=== PATIENT | female | born 1960 | race Caucasian/White ===

== ENCOUNTER 2020-09-28 14:24 | Observation (INO) | payer OTHER, SELFPAY ==
[2020-09-28] VITALS (10 sets, daily range): BP systolic 115–193; BP diastolic 74–127; PULSE 74–91; RESP 18–28; TEMP 36.1–37.1; O2SAT 94–98; BMI 29.9
--- NOTE | 2020-09-28 15:05 | DI.RAD.S_ITS ---
PROCEDURE: XR CHEST 1V INDICATIONS: chest pain TECHNIQUE: One view of the chest was acquired. COMPARISON: None. FINDINGS: Surgical changes and devices: None. Lungs and pleura: Lungs are clear. No pleural effusions or pneumothorax. Mediastinum: Mediastinal contours appear normal. Heart size is normal. Bones and chest wall: No suspicious bony lesions. Overlying soft tissues appear unremarkable. IMPRESSION: 1. No acute cardiopulmonary disease. Dictated by: Tim Alexander M.D. on 09/28/2020 at 15:31 Approved by: Tim Alexander M.D. on 09/28/2020 at 15:34
--- NOTE | 2020-09-28 15:30 | ED_ITS ---
HPI - Chest Pain General Chief Complaint: Chest Pain Stated Complaint: SMASHED CHEST INTO WALL LAST MONDAY, SOB Time Seen by Provider: 09/28/20 15:22 Source: patient Mode of arrival: Ambulatory Limitations: no limitations History of Present Illness HPI narrative: Patient is a 60-year-old female here for evaluation of chest discomfort. She states that 1 week ago she fell at home off of a step ladder. She states she hit her head and her chest in her right elbow on the wall the way down. She did not lose consciousness. She has not had any nausea or vomiting. She does have bruising around her right elbow but has full range of motion right elbow. Approximately 3 days later she started having chest discomfort. She states that is currently hurting now. Has been off and on since then. Has not worsened palpation or movement or breathing. She describes it is in the center of her chest. She has not had any coughing. Related Data Home Medications Medication Instructions Recorded Confirmed aspirin 81 mg PO DAILY 09/28/20 09/28/20 lisinopril 10 mg PO DAILY 09/28/20 09/28/20 sertraline 50 mg PO DAILY 09/28/20 09/28/20 Allergies Allergy/AdvReac Type Severity Reaction Status Date / Time No Known Drug Allergies Allergy Verified 09/28/20 15:00 Review of Systems Constitutional Constitutional: Denies chills, Denies fever(s) and Denies malaise Eyes Eyes: Denies blurry vision and Denies diplopia Cardiovascular Cardiovascular: Reports chest pain and Denies dyspnea Respiratory Respiratory: Denies cough and Denies dyspnea Gastrointestinal Gastrointestinal: Denies abdominal pain, Denies nausea and Denies vomiting Genitourinary Genitourinary: Denies dysuria Genitourinary: Denies dysuria Musculoskeletal Musculoskeletal: Denies arthralgias and Denies myalgias Integumentary/Breasts Skin/Breast: Denies rash Neurologic Neurologic: Denies behavioral changes Psychiatric Psychiatric: Denies behavioral changes Hematologic/Lymphatic On Anticoagulants: No Allergic/Immunologic Allergic/Immunologic: Denies urticaria Patient History Medical History Hypertension Social History household members: significant other Smoking Status: Never smoker alcohol intake: current Smoking Status: Former smoker alcohol intake frequency: a few times a week Substance Use Type: does not use Exam Initial Vital Signs Initial Vital Signs: Vital Signs Temperature 98.7 F 09/28/20 14:58 Pulse Rate 91 H 09/28/20 14:58 Respiratory Rate 22 09/28/20 14:58 Blood Pressure 193/127 H 09/28/20 14:58 Pulse Oximetry 97 09/28/20 14:58 Const General: cooperative and comfortable Limitations: mental status not altered HENMT Head: normal to inspection and normocephalic Chest Chest: No crepitus and No tenderness Resp Effort & Inspection: normal respiratory effort Auscultation: clear to auscultation bilaterally Cardio Rate: regular rate Rhythm: regular rhythm GI Inspection: non-distended Palpation: soft, No firm and No tender Skin Other: Bruising around the right elbow Neuro General: patient alert, patient awake and patient oriented x3 Cognition: normal cognition Speech: speech normal Extrem General: capillary refill normal Psych Appearance: grossly normal and well kempt Course Orders Ordered: ED Orders 09/28/20 15:05 XR chest 1V Stat EKG-12 Lead Stat 09/28/20 15:33 Complete Blood Count AUTO DIFF Stat Comprehensive Metabolic Panel Stat Lipase Stat Partial Thromboplastin Time Stat Prothrombin Time INR Stat Troponin & CK Cardiac Panel Stat 09/28/20 17:30 Troponin & CK Cardiac Panel Stat Discontinued Medications Aspirin (Aspirin 81 Mg Chew Tab) 324 mg PO NOW ONE Stop: 09/28/20 16:57 Last Admin: 09/28/20 17:02 Dose: 324 mg Documented by: PATIENCE Lisinopril (Lisinopril 10 Mg Tablet) 10 mg PO NOW ONE Stop: 09/28/20 18:25 Last Admin: 09/28/20 18:46 Dose: 10 mg Documented by: PATIENCE Vital Signs Vital signs: Vital Signs - 8 hr 09/28/20 14:58 09/28/20 16:50 09/28/20 17:00 Temperature 98.7 F Pulse Rate 91 H 76 75 Respiratory Rate 22 28 H 26 H Blood Pressure 193/127 H 141/74 H Pulse Oximetry 97 96 95 09/28/20 17:30 09/28/20 18:00 Temperature Pulse Rate 74 75 Respiratory Rate 24 26 H Blood Pressure 144/81 H 154/88 H Pulse Oximetry 94 95 MDM - Chest Pain Lab Data Attestation: I reviewed the patient's lab results. Result diagrams: 09/28/20 15:33 09/28/20 15:33 Labs: Lab Results 09/28/20 09/28/20 09/28/20 Range/Units 15:33 15:33 15:33 WBC 5.5 (4.5-11.0) X10^3/uL RBC 4.64 (4.0-5.2) X10^6/uL Hgb 14.3 (12.0-16.0) g/dL Hct 41.9 (36-46) % MCV 90.4 (80-100) fL MCH 30.7 (26-34) PG MCHC 34.0 (30-36) % RDW 14.4 (11.6-14.8) % Plt Count 185 (150-400) X10^3/uL Neut % (Auto) 50.3 (50-75) % Lymph % (Auto) 41.8 H (25-40) % [place] % (Auto) 5.4 (3-14) % Eos % (Auto) 1.7 L (2-4) % Baso % (Auto) 0.8 (0-2) % Neut # (Auto) 2800 (2955-3533) /uL Lymph # (Auto) 2300 (8244-3334) /uL [place] # (Auto) 300 (0-900) /uL Eos # (Auto) 100 (0-450) /uL Baso # (Auto) 0 (0-100) /uL PT 11.6 (10.1-12.7) SECONDS INR 1.0 (0.9-1.3) APTT 30 (26.4-36.2) SECONDS Sodium 135 L (137-145) mmol/L Potassium 4.3 (3.4-5.1) mmol/L Chloride 102 (98-107) mmol/L Carbon Dioxide 27 (22-32) mmol/L BUN 14 (7-17) mg/dL Creatinine 0.80 (0.52-1.04) mg/dL Estimated GFR > 60.0 (>60) mL/min BUN/Creatinine Ratio 17.5 (6-22) Glucose 102 (80-110) mg/dL Calcium 9.4 (8.4-10.2) mg/dL Total Bilirubin 0.5 (0.2-1.3) mg/dL AST 35 (14-36) IU/L ALT 32 (<35) IU/L Alkaline Phosphatase 67 (38-126) U/L Total Creatine Kinase 67 (30-135) U/L CK-MB (CK-2) TNP CK-MB (CK-2) Rel Index TNP Troponin I 0.047 H (0.01-0.034) ng/mL Total Protein 7.3 (6.3-8.2) g/dL Albumin 4.3 (3.5-5.0) g/dL Globulin 3.0 (1.7-4.1) g/dL Albumin/Globulin Ratio 1.4 (1.0-2.8) Lipase 145 (23-300) U/L 09/28/20 Range/Units 17:30 WBC (4.5-11.0) X10^3/uL RBC (4.0-5.2) X10^6/uL Hgb (12.0-16.0) g/dL Hct (36-46) % MCV (80-100) fL MCH (26-34) PG MCHC (30-36) % RDW (11.6-14.8) % Plt Count (150-400) X10^3/uL Neut % (Auto) (50-75) % Lymph % (Auto) (25-40) % [place] % (Auto) (3-14) % Eos % (Auto) (2-4) % Baso % (Auto) (0-2) % Neut # (Auto) (0648-5491) /uL Lymph # (Auto) (2018-9390) /uL [place] # (Auto) (0-900) /uL Eos # (Auto) (0-450) /uL Baso # (Auto) (0-100) /uL PT (10.1-12.7) SECONDS INR (0.9-1.3) APTT (26.4-36.2) SECONDS Sodium (137-145) mmol/L Potassium (3.4-5.1) mmol/L Chloride (98-107) mmol/L Carbon Dioxide (22-32) mmol/L BUN (7-17) mg/dL Creatinine (0.52-1.04) mg/dL Estimated GFR (>60) mL/min BUN/Creatinine Ratio (6-22) Glucose (80-110) mg/dL Calcium (8.4-10.2) mg/dL Total Bilirubin (0.2-1.3) mg/dL AST (14-36) IU/L ALT (<35) IU/L Alkaline Phosphatase (38-126) U/L Total Creatine Kinase 65 (30-135) U/L CK-MB (CK-2) TNP CK-MB (CK-2) Rel Index TNP Troponin I 0.046 H (0.01-0.034) ng/mL Total Protein (6.3-8.2) g/dL Albumin (3.5-5.0) g/dL Globulin (1.7-4.1) g/dL Albumin/Globulin Ratio (1.0-2.8) Lipase (23-300) U/L Imaging Data Chest x-ray: Radiologist's Impression: [address] [id number] ReportSigned Patient: DORCAS WATSON PMR#: [id number]: 8Acct:[id number]/Sex: 60 / FDate of Service: 09/28/20Loc: EDAccession Number: [id number] Procedure: XR chest 1V Ordering Provider: Alex Shah D.O. PROCEDURE: XR CHEST 1V INDICATIONS: chest pain TECHNIQUE: One view of the chest was acquired. COMPARISON: None. FINDINGS: Surgical changes and devices: None. Lungs and pleura: Lungs are clear. No pleural effusions or pneumothorax. Mediastinum: Mediastinal contours appear normal. Heart size is normal. Bones and chest wall: No suspicious bony lesions. Overlying soft tissues appear unremarkable. IMPRESSION: 1. No acute cardiopulmonary disease. Dictated by: Tim Alexander M.D. on 09/28/2020 at 15:31 Approved by: Tim Alexander M.D. on 09/28/2020 at 15:34 ECG Data Attestation: I personally reviewed and interpreted this ECG as follows: Prior ECG tracings: not available for review Interpretation: Sinus rhythm Ventricular rate is 70 for Sinus arrhythmia Normal QRS Normal QTC No ST T wave changes MDM Narrative Medical decision making narrative: Patient did fall approximately 1 week ago however the chest pain that brought her in today started several days afterwards. Has been off and on since then. Is in the center of her chest. It is not worse with palpation or movement or breathing. Her EKG is unremarkable. Her troponin is above the 99th percentile however less than the AMI cut off. A repeat troponin in 2 hours showed no change in this. She was hypertensive upon arrival. She had not taken her lisinopril today so I did give her a dose of her lisinopril. Blood pressure improved. Given the fact that her symptoms are not reproducible with palpation and that the symptoms started a couple days after the fall I feel that it is less likely related to the fall and there is concern about coronary artery disease. I discussed the case with Dr. Martin who is on- call for the patient's primary provider. Will admit for further evaluation and treatment. Discussed the admission with the patient. She expressed understanding and agreement. Discharge Plan Departure Patient Disposition: Admitted as Observation Clinical Impression: Chest pain Admit Date/Time: 09/28/20 18:25 Admit Provider: Surya Martin
[2020-09-28 15:43] LABS: Add Manual Diff / Slide Review NO; Basophils Absolute Auto 0 /uL (0-100); Basophils Percent Auto 0.8 % (0-2); Eosinophils Absolute Auto 100 /uL (0-450); Eosinophils Percent Auto 1.7 % (2-4); Hematocrit 41.9 % (36-46); Hemoglobin 14.3 g/dL (12.0-16.0); Lymphocytes Absolute Auto 2300 /uL (1100-4500); Lymphocytes Percent Auto 41.8 % (25-40); Mean Corpuscular Hemoglobin 30.7 PG (26-34); Mean Corpuscular Volume 90.4 fL (80-100); Monocytes Absolute Auto 300 /uL (0-900); Monocytes Percent Auto 5.4 % (3-14); Neutrophils Absolute Auto 2800 /uL (1500-7000); Neutrophils Percent Auto 50.3 % (50-75); Platelet Count 185 X10^3/uL (150-400); Red Blood Cell Count 4.64 X10^6/uL (4.0-5.2); Red Cell Distribution Width 14.4 % (11.6-14.8); White Blood Cell Count 5.5 X10^3/uL (4.5-11.0)
[2020-09-28 15:50] LABS: Prothrombin Time 11.6 SECONDS (10.1-12.7)
[2020-09-28 15:52] LABS: PTT Partial Thromboplastin Tim 30 SECONDS (26.4-36.2)
[2020-09-28 15:55] LABS: Alanine Aminotransferase 32 IU/L (<35); Albumin 4.3 g/dL (3.5-5.0); Albumin Globulin Ratio 1.4 (1.0-2.8); Alkaline Phosphatase 67 U/L (38-126); Aspartate Aminotransferase 35 IU/L (14-36); BUN Creatinine Ratio 17.5 (6-22); Bilirubin Total 0.5 mg/dL (0.2-1.3); Blood Urea Nitrogen 14 mg/dL (7-17); Calcium 9.4 mg/dL (8.4-10.2); Carbon Dioxide 27 mmol/L (22-32); Chloride 102 mmol/L (98-107); Creatine Kinase 67 U/L (30-135); Estimated Glomerular Filt Rate > 60.0 mL/min (>60); Glucose 102 mg/dL (80-110); HEMOLYSIS < 15 (0-50); Lipase 145 U/L (23-300); Potassium 4.3 mmol/L (3.4-5.1); Sodium 135 mmol/L (137-145); Total Protein 7.3 g/dL (6.3-8.2)
[2020-09-28 16:06] LABS: Troponin I 0.047 ng/mL (0.01-0.034)
[2020-09-28] MEDS: ASPIRIN 81 MG CHEW TAB 324 MG PO (17:02)
[2020-09-28 17:53] LABS: Creatine Kinase 65 U/L (30-135)
[2020-09-28 18:03] LABS: Troponin I 0.046 ng/mL (0.01-0.034)
[2020-09-28] MEDS: lisinopriL 10 MG TABLET PO (18:46)
[2020-09-28 19:37] LABS: COVID19 -Nasal RAPID Negative (Negative)
--- NOTE | 2020-09-28 20:44 | DI.NM.S_ITS ---
PROCEDURE: NM EXERCISE TREADMILL NON NUC COMPARISON: None. INDICATIONS: chest pain and htn FINDINGS: The patient exercised for 4 minutes and 21 seconds reaching 7.0 METs, NANDO +33%. Target heart rate achieved. Appropriate BP response to exercise. No ECG evidence of ischemia. IMPRESSION: Low risk, normal treadmill stress test. Reduced exercise tolerance (7.0METs, NANDO +33%). Dictated by: Nicolle Perez MD on 09/29/2020 at 18:22 Approved by: Nicolle Perez MD on 09/29/2020 at 18:23
--- NOTE | 2020-09-28 22:28 | PC.NURSE ---
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 Patient stated that she had attempted to dislodge the prongs from the outlet by pulling on the wires but had shocked herself and decided to leave it be. She also warned several staff to maintain their distance from the outlet and stated that she would stay away from the area. This RN was at lunch and patient did not call this RN or other staff when the incidence occurred but updated staff on hourly rounds. This RN was able to dislodge director systems prongs from outlet without incident. Charge nurse Adeline alan. Will continue to monitor.
[2020-09-29 00:37] LABS: Troponin I 0.035 ng/mL (0.01-0.034)
--- NOTE | 2020-09-29 00:48 | PC.NURSE ---
Addendum entered by Aimee Grace R.N. 09/29/20 05:15: Despite Ambien patient was unable to sleep tonight but states she feels more relaxed. Continues to have 4/10 achy pain in mid chest which she states increases when lying on side. Addendum entered by Aimee Grace R.N. 09/29/20 02:31: Patient states I can't shut my mind down complaining of not being able to sleep. Dr Martin informed and order received for Alyssa. Original Note: 2326: patient is alert and oriented. Breath sounds CTA with RA sat of 97%. HRR w/telemetry reading of SR. Having mid chest pressure of 4/10 but states it is unchanged and tolerable; declines medication. Denies nausea. BT hypoactive and abdomen is soft; reports having had BM earlier. Denies dysuria, frequency or urgency with urination. Is independent with mobility and is steady on feet. Fall risk score is moderate; patient reminded to call for assistance if having any dizziness, lightheadedness or weakness when getting out of bed and she verbalizes understanding. Wearing bilateral calf SCD's.
[2020-09-29] MEDS: ZOLPIDEM 5 MG TABLET PO (02:48)
[2020-09-29 03:00] VITALS: BP 135/78; PULSE 65; RESP 16; TEMP 36.3; O2SAT 98
--- NOTE | 2020-09-29 06:42 | PM.HP.1 ---
History of Present Illness History of Present Illness Date Patient Seen: 09/29/20 Time Patient Seen: 06:42 Chief complaint: SMASHED CHEST INTO WALL LAST MONDAY, SOB Narrative: Patient is a 60-year-old female admitted for rule out PR. She fell off a step ladder 1 week prior to presentation, hit her head, chest, and right elbow on the way down. No loss of consciousness. Four days prior to presentation, began having chest discomfort, dyspnea, and fatigue that is intermittent and ongoing. No worsening with palpation or breathing. Pain is in the center of her chest. Denies coughing, fever, sick contacts, or shortness of breath. Vital signs upon admission to the ED included a temperature of 98.7?, pulse 91, respirations 22, blood pressure 193/127, O2 saturation 97% on room air. Workup significant for a mildly elevated troponin at 0.047 that upon recheck 2 hours later was 0.046. Otherwise, had a mildly low sodium at 1:35 a.m.. She was given her usual lisinopril in the ED which reduced her blood pressure to 141/74, it normal this morning. She had not taken her blood pressure medication prior to presentation to the ED. CXR and EKG were notably negative. Reports uneventful night. 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 Household Members: Dhruv Villegas Proximetry Education: Life changes 2017: Fired from work Patient History Medical History Hypertension Family & Social History Social History: household members significant other Prior Living Arrangements House Safety & Behavioral: Feels Safe in Current Yes Environment Been Physically Hurt or No Threatened By a Person Suicidal Ideation Description None Suicide Plan Description No Plan Tobacco & Substance use: Smoking Status Never smoker alcohol intake current alcohol intake frequency a few times a week Substance Use Type does not use Meds Home Medications and Allergies Home Medications Medication Instructions Recorded Confirmed Type aspirin 81 mg PO DAILY 09/28/20 09/28/20 History lisinopril 10 mg PO DAILY 09/28/20 09/28/20 History sertraline 50 mg PO DAILY 09/28/20 09/28/20 History Allergies Allergy/AdvReac Type Severity Reaction Status Date / Time No Known Drug Allergies Allergy Verified 09/28/20 15:00 Review of Systems Review of Systems ROS: Yes All systems reviewed with the patient and are negative except as otherwise documented Exam Vital Signs (past 8 hours): - 09/28/20 23:30 09/29/20 03:00 Temperature 97.7 F 97.4 F L Pulse Rate 85 65 Respiratory Rate 18 16 Blood Pressure 127/80 135/78 Pulse Oximetry 97 98 Oxygen Delivery Method Room Air Oxygen Flow Rate 0 Narrative Exam Narrative: GENERAL: Alert and oriented, appearing stated age and in no acute distress. HEENT: Head normocephalic/atraumatic. Pupils equal, round, and reactive to light and accomodation. Extraocular muscles intact. Tympanic membranes clear. Nasal mucosa moist, septum midline. Oral mucosa moist, no lesions. Neck soft and supple, no lymphadenopathy. LUNGS: Clear to ausculation bilaterally, no wheezes, rhonchi or rales. CV: Normal S1 and S2 with regular rate and rhythm, no audible murmurs, rubs or gallops. Pain with palpation over xiphoid process and sternum. ABDOMEN: Soft, non-tender, non-distended, no organomegaly. Positive bowel sounds. EXTREMITIES: No clubbing, cyanosis, or edema. NEURO: Cranial nerves II through XII grossly intact, no focal deficits. PSYCH: Alert and oriented x 3. SKIN: Bruising over right elbow, large. Objective Labs Result Diagrams: 09/28/20 15:33 09/28/20 15:33 Labs: Laboratory Results - last 24 hr 09/28/20 09/28/20 09/28/20 15:33 15:33 15:33 WBC 5.5 RBC 4.64 Hgb 14.3 Hct 41.9 MCV 90.4 MCH 30.7 MCHC 34.0 RDW 14.4 Plt Count 185 Neut % (Auto) 50.3 Lymph % (Auto) 41.8 H [place] % (Auto) 5.4 Eos % (Auto) 1.7 L Baso % (Auto) 0.8 Neut # (Auto) 2800 Lymph # (Auto) 2300 [place] # (Auto) 300 Eos # (Auto) 100 Baso # (Auto) 0 PT 11.6 INR 1.0 APTT 30 Sodium 135 L Potassium 4.3 Chloride 102 Carbon Dioxide 27 BUN 14 Creatinine 0.80 Estimated GFR > 60.0 BUN/Creatinine Ratio 17.5 Glucose 102 Calcium 9.4 Total Bilirubin 0.5 AST 35 ALT 32 Alkaline Phosphatase 67 Total Creatine Kinase 67 CK-MB (CK-2) TNP CK-MB (CK-2) Rel Index TNP Troponin I 0.047 H Total Protein 7.3 Albumin 4.3 Globulin 3.0 Albumin/Globulin Ratio 1.4 Lipase 145 SARS-CoV-2 (PCR) 09/28/20 09/28/20 09/28/20 17:30 19:19 23:55 WBC RBC Hgb Hct MCV MCH MCHC RDW Plt Count Neut % (Auto) Lymph % (Auto) [place] % (Auto) Eos % (Auto) Baso % (Auto) Neut # (Auto) Lymph # (Auto) [place] # (Auto) Eos # (Auto) Baso # (Auto) PT INR APTT Sodium Potassium Chloride Carbon Dioxide BUN Creatinine Estimated GFR BUN/Creatinine Ratio Glucose Calcium Total Bilirubin AST ALT Alkaline Phosphatase Total Creatine Kinase 65 CK-MB (CK-2) TNP CK-MB (CK-2) Rel Index TNP Troponin I 0.046 H 0.035 H Total Protein Albumin Globulin Albumin/Globulin Ratio Lipase SARS-CoV-2 (PCR) Negative Assessment & Plan Assessment & Plan narrative: 60-year-old female with chest discomfort x4 days. 1. Rule out PR Plan: Serial cardiac enzymes have now trended back to normal. Awaiting treadmill, not available until tomorrow, will keep patient overnight as her history of chest pain, dyspnea, and fatigue is separate from her fall and still a concern in terms of an acute coronary syndrome. Morhphine and nitro for symptom control while awaiting treadmill. 2. Hypertension, chronic, elevated in ED, now controlled and back to baseline. Plan: Continue home lisinopril. 3. Hyperlipidemia, chronic Plan: FLP out of date, 2019. At that time ASCVD risk score 4.2%, appropriately on aspirin but not statin. In light of this admission, will recommend starting atorvastatin 40 mg PO qhs. FLP today. 4. Depression, chronic Plan: Continue home sertraline. 5. ADHD, chronic Plan: Manages with lifestyle measures, continue. DVT prophylaxis: SCDs COVID: Negative Code: Full Disposition: Anticipate discharge tomorrow.
[2020-09-29 06:56] LABS: Troponin I 0.025 ng/mL (0.01-0.034)
[2020-09-29 07:20] VITALS: BP 125/80; PULSE 70; RESP 18; TEMP 36.4; O2SAT 96
[2020-09-29 07:32] LABS: Cholesterol 222 mg/dL (140-199); HDL Cholesterol 59 mg/dL (40-60); LDL Cholesterol Calculated 92 mg/dL (<100); Triglycerides 356 mg/dL (35-150)
[2020-09-29 08:18] VITALS: BP 125/80; PULSE 70
[2020-09-29] MEDS: ASPIRIN EC 81 MG TABLET PO (08:18)
[2020-09-29] MEDS: lisinopriL 10 MG TABLET PO (08:18)
[2020-09-29] MEDS: SERTRALINE 50 MG TABLET PO (08:18)
[2020-09-29] MEDS: SODIUM CHLORIDE 0.9% FLUSH 10 ML IV (08:19)
--- NOTE | 2020-09-29 10:26 | PC.NURSE ---
STONEY Cantu nurse, called informing me of no availability today for treadmill test, next available inpt opening is tomorrow 09/30 @[id number]. made aware.
--- NOTE | 2020-09-29 11:06 | CM.DANOTE ---
Addendum entered by Adeline Simms R.N. 09/29/20 11:35: Left message with Frank Gardner, Director of Diagnostics about the need for stress test. Will update staff accordingly. Addendum entered by Lara Greene LPN 09/29/20 11:15: RN note indicates Treadmill may not be available today. UR RN Tim as well as consulting manager Kayla is updated. Original Note: Discharge Planning/Care Management DCP: assessment: case received, EMR reviewed and met with pt. Introduced self and role. Pt is a 60 year old female who admitted last evening. PCP: Dr. Thornton will be seeing pt today and has ordered a treadmill. Payer: [facility] Pt at this time seems to be speaking easily with no obvious signs of shortness of breath noted. She says she has good support from her partner Dhruv. P: plan: at this time is home when stable for same, either today or tomorrow. CM Discharge Assessment Start: 09/29/20 11:05 Freq: Status: Active Protocol: Document 09/29/20 11:06 ITV (Rec: 09/29/20 11:06 ITV [id number]) Discharge Planning Assessment Advance Directives? No History Provided By Patient,Medical Record Prior Living Arrangements House Household Members significant other Comment Dhruv Villegas Independent with ADL's Yes Is patient alert and oriented? Yes
[2020-09-29 11:18] VITALS: BP 126/76; PULSE 67; RESP 18; TEMP 36.6; O2SAT 97
[2020-09-29 15:10] VITALS: BP 141/106; PULSE 81; RESP 17; TEMP 36.9; O2SAT 96
--- NOTE | 2020-09-29 15:24 | PC.NURSE ---
Addendum entered by Steff Hollins R.N. 09/29/20 15:51: Returned to the floor, tele restarted, ICU notified. Original Note: Shift note: Patient off the floor, tele removed, ICU notified.
--- NOTE | 2020-09-29 19:41 | PM.DS.1 ---
History of Present Illness History of Present Illness Date Patient Seen: 09/29/20 Time Patient Seen: 19:42 Chief complaint: SMASHED CHEST INTO WALL LAST MONDAY, SOB Narrative: Patient is a 60-year-old female admitted for rule out CO. She fell off a step ladder 1 week prior to presentation, hit her head, chest, and right elbow on the way down. No loss of consciousness. Four days prior to presentation, began having chest discomfort, dyspnea, and fatigue that is intermittent and ongoing. No worsening with palpation or breathing. Pain is in the center of her chest. Denies coughing, fever, sick contacts, or shortness of breath. Vital signs upon admission to the ED included a temperature of 98.7?, pulse 91, respirations 22, blood pressure 193/127, O2 saturation 97% on room air. Workup significant for a mildly elevated troponin at 0.047 that upon recheck 2 hours later was 0.046. Otherwise, had a mildly low sodium at 1:35 a.m.. She was given her usual lisinopril in the ED which reduced her blood pressure to 141/74, it normal this morning. She had not taken her blood pressure medication prior to presentation to the ED. CXR and EKG were notably negative. Reports uneventful night. Discharge Providers Provider Date of admission: 09/28/20 18:25 Discharge Date: 09/29/20 Primary care physician: Paola Thornton MD Discharge provider: Paola Thornton MD Summary Hospital Course Discharge Diagnosis: 1. Rule out CO, chest pain secondary to musculoskeletal bruising from recent fall 2. Hypertension, chronic 3. Hyperlipidemia, chronic 4. Depression, chronic 5. ADHD, chronic Hospital Course: Unremarkable. Serial cardiac enzymes trended back to normal. Stress test low risk. Cardiac pain likely musculoskeletal from recent fall. On day of discharge, patient is asymptomatic and afebrile with stable vital signs throughout. She will be discharged on nitroglycerin and atorvastatin. Plan to follow-up 1 week. Time spent on Discharge and Coordination of post-hospital care: 35 minutes Status at Discharge Functional status at discharge: independent ambulation Overall status at discharge: patient is progressing back to baseline Exam Vital Signs (past 8 hours): - 09/29/20 15:10 Temperature 98.4 F Pulse Rate 81 Respiratory Rate 17 Blood Pressure 141/106 H Pulse Oximetry 96 Oxygen Delivery Method Room Air Oxygen Flow Rate 0 Narrative Exam Narrative: GENERAL: Alert and oriented, appearing stated age and in no acute distress. HEENT: Head normocephalic/atraumatic. LUNGS: Clear to ausculation bilaterally, no wheezes, rhonchi or rales. CV: Normal S1 and S2 with regular rate and rhythm, no audible murmurs, rubs or gallops. Pain with palpation over xiphoid process and sternum. ABDOMEN: Soft, non-tender, non-distended, no organomegaly. Positive bowel sounds. EXTREMITIES: No clubbing, cyanosis, or edema. NEURO: Cranial nerves II through XII grossly intact, no focal deficits. PSYCH: Alert and oriented x 3. SKIN: Bruising over right elbow, large. Objective Labs Result Diagrams: 09/28/20 15:33 09/28/20 15:33 Labs: Laboratory Results - last 24 hr 09/28/20 09/29/20 09/29/20 23:55 06:30 06:30 Troponin I 0.035 H 0.025 Triglycerides 356 H Cholesterol 222 H LDL Cholesterol, Calc 92 HDL Cholesterol 59 PFSH Medical History Hypertension Social History household members: significant other Smoking Status: Never smoker alcohol intake: current Discharge Plan Discharge Plan Patient Disposition: Home Discharge orders & Medications Prescriptions: New atorvastatin [Lipitor] 20 mg Tablet 40 mg PO BEDTIME Qty: 90 RF: 3 nitroglycerin [Nitrostat] 0.4 mg Tablet, Sublingual 0.4 mg sublingual [id number] PRN (Reason: Chest Pain) Qty: 10 RF: 3 Continued sertraline 100 mg tablet 50 mg PO DAILY RF: 0 lisinopril 10 mg tablet 10 mg PO DAILY RF: 0 aspirin 81 mg Tablet 81 mg PO DAILY RF: 0 Follow up/Referrals: Paoal Thornton MD [Primary Care Provider] - Diet/Activity/Treatments Diet: Low-sodium Activity: As tolerated. Skin/Wound/Dressing Care Report to your healthcare provider any signs of infection, such as:: chills, fever and increased pain Discharge Data Primary Care Provider: Paola Thornton Attending Provider: Surya Martin
--- NOTE | 2020-09-29 19:54 | PC.NURSE ---
Discharge Note: Patient left via wheelchair pushed by SURFACE [employer] SUPERVISOR to POV with all her belongings. IV d/c'd, tele removed and ICU notified.
== END 2020-09-29 19:55 | disposition home or self-care (01) ==
LOC: ED 18:25 → AC 18:26
PROVIDERS: Admitting Provider Family Medicine; Emergency Provider Emergency Medicine; PCP Student in an Organized Health Care Education/Training Program; Referring Provider Emergency Medicine; Visit Provider Family Medicine
DX: R07.89 Other chest pain (principal); S20.219A Contusion of unspecified front wall of thorax, initial encounter; W11.XXXA Fall on and from ladder, initial encounter; Y92.009 Unspecified place in unspecified non-institutional (private) residence as the place of occurrence of the external cause; I10 Essential (primary) hypertension; E78.5 Hyperlipidemia, unspecified; F33.9 Major depressive disorder, recurrent, unspecified; F90.9 Attention-deficit hyperactivity disorder, unspecified type; Z20.822 Contact with and (suspected) exposure to COVID-19
CPT/HCPCS: 36415; 71045; 80053; 80061; 82550; 83690; 84484; 85025; 85610; 85730; 87635; 93005; 93017; 99284; C9803; G0378

== ENCOUNTER → 2023-11-20 09:56 | Outpatient (CLI) | payer OTHER, MEDICARE, SELFPAY ==
[2020-09-28 19:22] VITALS: BMI 29.9
--- NOTE | 2023-11-20 | DI.RAD.S_ITS ---
PROCEDURE: XR CHEST 2V INDICATIONS: ongoing cough, left-sided thoracic pain TECHNIQUE: 2 views of the chest were acquired. COMPARISON: [facility], CR, XR CHEST 1V, 09/28/2020, 15:16. FINDINGS: Surgical changes and devices: None. Lungs and pleura: Subtle opacity in right midlung field is seen suggestive of small infiltrate versus atelectasis. Left lung is clear. No pleural effusions or pneumothorax. Mediastinum: Mediastinal contours are normal. Heart size is normal. Bones and chest wall: No suspicious bony abnormalities. Soft tissues appear unremarkable. IMPRESSION: Finding may represent small infiltrate versus atelectasis in right lower lung field. Left lung is clear. Dictated by: Tommie Lema M.D. on 11/20/2023 at 12:43 Approved by: Tommie Lema M.D. on 11/20/2023 at 12:44
== END ==
PROVIDERS: PCP Internal Medicine; Referring Provider Internal Medicine; Visit Provider Internal Medicine
DX: R05.1 Acute cough (principal)
CPT/HCPCS: 71046

== ENCOUNTER → 2023-11-20 10:34 | Outpatient (CLI) | payer OTHER, MEDICARE, SELFPAY ==
[2020-09-28 19:22] VITALS: BMI 29.9
--- NOTE | 2023-11-20 | DI.US.S_ITS ---
PROCEDURE: US RENAL COMPLETE INDICATIONS: HEMATURIA / LEFT FLANK PAIN TECHNIQUE: Real-time scanning was performed of the kidneys and bladder, with image documentation. COMPARISON: None. FINDINGS: Kidneys: The kidneys are normal in size measuring 11 cm bilaterally. No stones or hydronephrosis. No discrete cysts or solid mass. Bladder: Ureteral jets are not seen. Bladder is under distended, limiting evaluation. Miscellaneous: No pathologic free fluid. IMPRESSION: No hydronephrosis. No solid mass identified by ultrasound. In the setting of hematuria, consider cystoscopy and CT IVP. Dictated by: Gilberto Weldon M.D. on 11/20/2023 at 12:58 Approved by: Gilberto Weldon M.D. on 11/20/2023 at 12:59
== END ==
PROVIDERS: PCP Internal Medicine; Referring Provider Internal Medicine; Visit Provider Internal Medicine
DX: R31.9 Hematuria, unspecified (principal); R10.9 Unspecified abdominal pain; R05.1 Acute cough
CPT/HCPCS: 71046; 76770

== ENCOUNTER → 2024-12-18 10:43 | Outpatient (CLI) | payer OTHER, MEDICARE, SELFPAY ==
[2020-09-28 19:22] VITALS: BMI 29.9
--- NOTE | 2024-12-18 10:47 | DI.RAD.S_ITS ---
PROCEDURE: XR DEXA AXIAL SKELETON INDICATIONS: OSTEOPOROSIS SCREENING/POSTMENOPAUSAL COMPARISON: None. FINDINGS: Lumbar Spine: Bone mineral density 1.012 g/cm2, T score -0.3, baseline. Left Femoral Neck: Bone mineral density 0.848 g/cm2, T score 0. Left Hip: Bone mineral density 1.060 g/cm2, T score 1, baseline. Fracture Risk Calculation (when applicable): Not reported due to normal bone mineralization. (T score greater or equal to -1.0 to: NORMAL) (T score from -1.1 to -2.4: OSTEOPENIA) (T score less than or equal to -2.5: OSTEOPOROSIS) IMPRESSION: Normal bone mineralization. Follow-up guidelines as follows: Osteoporosis: Consider a repeat DEXA and Vertebral Fracture Assessment (VFA) exam in 2 years or sooner if medically necessary, to reassess this patient's status. Osteopenia: Consider a repeat DEXA in 2-3 years to reassess this patient's status, or if there is a new clinical indication. Normal: Consider a repeat DEXA in 5 years or sooner, or if there is a new clinical indication. All treatment decisions require clinical judgment and consideration of individual patient factors, including patient preferences, comorbidities, previous drug use, risk factors not captured in the FRAX model (e.g., frailty, falls, vitamin D deficiency, increased bone turnover, interval significant decline in bone density ) and possible under- or over-estimation of fracture risk by FRAX. In addition, the NOF Guide recommends that FDA-approved medical therapies be considered in postmenopausal women and men age >= 50 years with a: * Hip or vertebral (clinical or morphometric) fracture * T-score of <=-2.5 at the spine or hip * Ten-year fracture probability by FRAX of >= 3% for hip fracture or >=20% for major osteoporotic fracture. Dictated by: Jalen Hernandez M.D. on 12/18/2024 at 12:15 Approved by: Jalen Hernandez M.D. on 12/18/2024 at 12:16
--- NOTE | 2024-12-18 10:47 | DI.MG.S_ITS ---
MM screening mammo BI: 12/18/2024. BI-RADS: 1 CLINICAL: 64-year old female for bilateral screening mammogram. Tyrer-Cuzick lifetime risk of 10.4%. No personal or first-degree family history of breast cancer. History of ovarian cancer in one first-degree relative. PRIOR EXAMS: No prior examinations available. MAMMOGRAPHY TECHNIQUE: 2D and 3D (tomosynthesis) digital mammographic views obtained, with additional images as needed for full coverage. Current study was also evaluated with a Computer Aided Detection (CAD) system. DENSITY C. The breasts are heterogeneously dense, which may obscure small masses. MAMMOGRAPHY FINDINGS Bilateral: No suspicious mass, asymmetry, microcalcification, or other abnormality seen. IMPRESSION: * No evidence of malignancy. RECOMMENDATIONS Bilateral * Annual screening mammography. OVERALL ASSESSMENT CATEGORY BI-RADS-1: Negative. The [employer] recommends annual screening mammography beginning at age 40 for women with average risk of breast cancer. ELECTRONICALLY SIGNED: Oleg Serra M.D. on 12/19/2024 at 08:01:28 AM PT Interpreting Station ID: [id number]
== END ==
PROVIDERS: PCP Registered Nurse; Referring Provider Registered Nurse; Visit Provider Registered Nurse
DX: Z13.820 Encounter for screening for osteoporosis (principal); Z78.0 Asymptomatic menopausal state; Z12.31 Encounter for screening mammogram for malignant neoplasm of breast; Z80.41 Family history of malignant neoplasm of ovary
CPT/HCPCS: 77063; 77067; 77080

== ENCOUNTER 2025-02-01 17:15 | Emergency (ER) | payer OTHER, MEDICARE, SELFPAY ==
[2020-09-28 19:22] VITALS: BMI 29.9
[2025-02-01] VITALS (9 sets, daily range): BP systolic 118–156; BP diastolic 61–82; PULSE 95–104; RESP 18–20; TEMP 37.1; O2SAT 96–97; BMI 31.6
--- NOTE | 2025-02-01 17:31 | DI.RAD.S_ITS ---
PROCEDURE: XR KNEE LT 3V INDICATIONS: kneeled with sudden knee popping non weight bearing after. TECHNIQUE: 3 views of the knee were acquired. COMPARISON: None. FINDINGS AND IMPRESSION: Mild knee arthrosis. No acute displaced fracture. No dislocation. Small knee joint effusion. Possible small intra-articular body seen on lateral view. Given nonweightbearing status and effusion, MRI is suggested for internal derangement. Dictated by: Gilberto Weldon M.D. on 02/01/2025 at 17:15 Approved by: Gilberto Weldon M.D. on 02/01/2025 at 17:16
--- NOTE | 2025-02-01 22:34 | ED.LOWEXIN ---
HPI - Extremity Injury (Lower) General Chief Complaint: Extremity Injury, Lower Stated Complaint: Lt knee pain- popped Time Seen by Provider: 02/01/25 22:25 Source: patient Mode of arrival: Wheelchair History of Present Illness HPI Narrative: 64-year-old female was leaning down to pick something up earlier today 5:00 p.m. and felt popping pain sensation posterior aspect lateral aspect thigh near the posterior knee. She would not buckle or fall, but has had pain in that area since then. Pain with any attempted moving of the knee. No prior knee surgeries or interventions. She would not directly fall onto the knee. No direct blow externally to the knee. No distal numbness. No injury to the foreleg ankle or foot. No injury to the thigh or hip. Related Data Home Medications ?Medication ?Instructions ?Recorded ?Confirmed aspirin 81 mg tablet 81 mg PO DAILY 09/28/20 09/28/20 lisinopril 10 mg tablet 10 mg PO DAILY 09/28/20 09/28/20 sertraline 100 mg tablet 50 mg PO DAILY 09/28/20 09/28/20 Previous Rx's ?Medication ?Instructions ?Recorded atorvastatin 20 mg tablet (Lipitor) 40 mg (2 x 20 mg) PO BEDTIME #90 09/29/20 tabs nitroglycerin 0.4 mg sublingual 0.4 mg sublingual [id number] PRN 09/29/20 tablet (Nitrostat) Chest Pain #10 tabs Allergies Allergy/AdvReac Type Severity Reaction Status Date / Time No Known Drug Allergies Allergy Verified 02/01/25 17:26 Patient History Medical History Hypertension Social History household members: significant other Smoking Status: Never smoker alcohol intake: current Smoking Status: Never smoker alcohol intake frequency: a few times a week Exam Narrative Exam Narrative: GENERAL: Well-developed patient, in mild distress. HEAD: Atraumatic. Normocephalic. EYES: Pupils equal round and reactive. Extraocular motions intact. No scleral icterus. No injection or drainage. ENT: Nose without bleeding, purulent drainage. Throat without erythema, tonsillar hypertrophy or exudate. Airway patent. NECK: Trachea midline. Non tender CARDIOVASCULAR: Regular rate and rhythm without murmurs, gallops, or rubs. RESPIRATORY: Clear to auscultation. Breath sounds equal bilaterally. No wheezes, rales, or rhonchi. GASTROINTESTINAL: Abdomen soft, non-tender, nondistended. EXTREMITIES: Tenderness to the lateral aspect distal posterior thigh, soft tissue region, no gross hematoma or discoloration or shortening or mass. No anterior knee medial or lateral joint line tenderness, no patellar bone or patellar tendon area tenderness. No prepatellar bursal tenderness. She is able to extend just short of full on her left knee, about 30? flexion limited by posterior pain good DP pulse. No lower extremity edema to the foreleg. Ipsilateral foot ankle without tenderness. No tenderness proximal thigh or hip. BACK: Nontender without deformity or crepitance. No flank tenderness. NEURO: AOx3. Motor functions grossly nonfocal. SKIN: No rash or erythema of visible areas Initial Vital Signs Initial Vital Signs: Vital Signs Temperature 98.7 F 02/01/25 17:25 Pulse Rate 102 H 02/01/25 17:25 Respiratory Rate 20 02/01/25 17:25 Blood Pressure 156/72 H 02/01/25 17:25 Course Orders Ordered: Discontinued Medications Tramadol HCl (Tramadol 50 Mg Prepack) 1 bottle MISC DIRECTED ONE Stop: 02/01/25 23:02 Last Admin: 02/01/25 23:05 Dose: 1 bottle Documented By: BRENNON Vital Signs Vital signs: Vital Signs - 8 hr 02/01/25 17:25 02/01/25 20:29 02/01/25 20:30 Temperature 98.7 F Pulse Rate 102 H 98 H Respiratory Rate 20 18 Blood Pressure 156/72 H 133/82 Pulse Oximetry 96 02/01/25 20:30 02/01/25 21:00 02/01/25 21:00 Temperature Pulse Rate 99 H Respiratory Rate Blood Pressure 123/73 139/63 Pulse Oximetry 97 02/01/25 21:30 Temperature Pulse Rate 97 H Respiratory Rate 18 Blood Pressure 125/79 Pulse Oximetry 96 MDM - Extremity Injury (Lower) Imaging Data Extremity x-ray #1: Radiologist's Impression: [address] [address] XRay Report Signed Patient: Slime Guerra MR#: [id number] : 1960 Acct:[id number] Age/Sex: 64 / F Date of Service: 02/01/25 Loc: ED Accession Number: [id number] Procedure: XR knee LT 3V Ordering Provider: Vipul Robles D.O. PROCEDURE: XR KNEE LT 3V INDICATIONS: kneeled with sudden knee popping non weight bearing after. TECHNIQUE: 3 views of the knee were acquired. COMPARISON: None. FINDINGS AND IMPRESSION: Mild knee arthrosis. No acute displaced fracture. No dislocation. Small knee joint effusion. Possible small intra-articular body seen on lateral view. Given nonweightbearing status and effusion, MRI is suggested for internal derangement. Dictated by: Gilberto Weldon M.D. on 02/01/2025 at 17:15 Approved by: Gilberto Weldon M.D. on 02/01/2025 at 17:16 [facility] Narrative Medical decision making narrative: Posterior knee pain after leaning forward and feeling a popping sensation. In his posterior lateral distal thigh tendon region, without obvious mass effect or hematoma or discoloration of the skin. Possible soft tissue strain. No gross fluid anterior knee, no tenderness along medial or lateral joint line. Left knee x-ray series. IMPRESSION: Mild knee arthrosis. No acute displaced fracture. No dislocation. Small knee joint effusion. Possible small intra-articular body seen on lateral view. Given nonweightbearing status and effusion, MRI is suggested for internal derangement.? See radiology report. Effusion noted on imaging, was not grossly obvious clinically. However with popping sensation, concern for internal ligamentous derangement. We will protect knee with knee immobilizer and crutches nonweightbearing. Follow up with Orthopedic surgery, possible future MRI in follow up. Take Tylenol and or Motrin as needed for pain control. Home pack tramadol to use if needed. Follow up Orthopedic surgery. Discharged home with family. Return precautions discussed. Discharge Plan Departure Patient Disposition: Home Clinical Impression: Strain of left knee, Effusion of left knee Instructions: DI for Knee Sprain Activity Restrictions/Additional Instructions: Pain with leaning over and having a popping sensation to the posterior left knee. No significant tenderness along the medial or lateral joint line. Mostly posterior lateral tenderness on examination, without gross changes in the soft tissue tendon/muscular/skin visible area. No gross fluid on examination. Screening x-ray did not show any bony fractures but did show knee effusion/fluid. Concerning by history for internal derangement of the ligaments or other soft tissue structures. We will protect the knee in knee immobilizer for now, advising no weight-bearing for now with use of crutches. Follow up with Orthopedic surgery early next week. Clinic contact information given. Might need MRI imaging in follow up if symptoms not rapidly improved, to look for ligamentous derangement or other soft tissue injuries. Take [id number] Tylenol and or Motrin as needed for pain control. Home pack of tramadol also given to use if needed. Follow up with Orthopedic surgery. Return to this/nearest emergency department for any change worsening symptoms or any concerns prior. Prescriptions: No Action sertraline 100 mg tablet 50 mg PO DAILY Patient Comments: TAKE 1 TABLET BY MOUTH EVERY DAY FOR ANXIETY OR DEPRESSION lisinopril 10 mg tablet 10 mg PO DAILY aspirin 81 mg Tablet 81 mg PO DAILY atorvastatin [Lipitor] 20 mg Tablet 40 mg PO BEDTIME Qty: 90 3RF nitroglycerin [Nitrostat] 0.4 mg Tablet, Sublingual 0.4 mg sublingual [id number] PRN (Reason: Chest Pain) Qty: 10 3RF Referrals: Katelyn Engel ARNP [Primary Care Provider, Family Practice] Sara Neely DO [Physician, Orthopedic Surgery] Stand Alone Forms: Patient Portal/API
[2025-02-01] MEDS: TRAMADOL 50 MG PREPACK 1 BOTTLE MISC (23:05)
== END 2025-02-01 23:26 | disposition home or self-care (01) ==
PROVIDERS: Emergency Provider Emergency Medicine; PCP Registered Nurse
DX: S86.812A Strain of other muscle(s) and tendon(s) at lower leg level, left leg, initial encounter (principal); X50.1XXA Overexertion from prolonged static or awkward postures, initial encounter; M25.462 Effusion, left knee
CPT/HCPCS: 73562; 99283